=== PATIENT | male | born 1955 | race Caucasian/White ===

== ENCOUNTER 2024-02-13 09:50 | Emergency (ER) | payer MEDICARE, SELFPAY ==
[2024-02-13 09:51] VITALS: BP 210/93; BP 211/100; PULSE 83; PULSE 93; RESP 14; RESP 18; TEMP 36.6; O2SAT 97; BMI 25.4
--- NOTE | 2024-02-13 10:31 | ED.RN ---
NO OLD EKGS
[2024-02-13 10:48] LABS: Absolute Lymphocyte Count 1.71 X10^3/uL (0.83-4.51); Absolute Neutrophil Count 4.4 X10^3/uL (2.0-7.7); Basophil# 0.03 X10^3/uL; Basophil% 0.4 % (0-1); Eosinophil# 0.19 X10^3/uL; Eosinophils% 2.8 % (0-5); Hematocrit 49.7 % (40-54); Hemoglobin 14.9 g/dL (13.0-16.5); Lymphocyte # 1.71 X10^3/ul (0.83-4.51); Lymphocyte % 24.8 % (19-41); Mean Corpuscular Hgb 21.8 pg (27.0-32.0); Mean Corpuscular Volume 72.7 fL (80-94); Mean Platelet Vol. 10.1 fl (6.2-12.0); Monocyte# 0.54 X10^3/uL; Monocyte% 7.8 % (0-10); NRBC Flagged by Analyzer 0 % (0-5); Neutrophil # 4.41 X10^3/uL (2.7-7.7); Neutrophil % 63.9 % (47-70); Platelet Count 202 K/mm3 (150-450); RBC Distribution Width CV 17.2 % (11.6-14.6); RBC Distribution Width SD 38.6 fl (35.1-43.9); Red Blood Count 6.84 M/mm3 (4.6-6.2); White Blood Count 6.9 K/mm3 (4.4-11.0)
--- NOTE | 2024-02-13 10:58 | RAD_ITS ---
STUDY: X-RAY CHEST REASON FOR EXAM: Male, 68 years old. Chest pain. TECHNIQUE: Frontal and lateral views of the chest. COMPARISON: None. FINDINGS: Marked hyperinflation with hyperlucency and flattening of the hemidiaphragms. Findings compatible with mild COPD. Healed granulomatous calcifications.. There is no demonstrated pleural abnormality. Borderline cardiomegaly. Normal mediastinum and nilo. Normal visualized pulmonary arteries. Aortic tortuosity with calcification. Thoracic osteopenia with diffuse mild thoracic spondylosis. Right shoulder arthroplasty. No abnormality of the visualized soft tissue structures of the upper abdomen. RAD/Chest PA and Lateral IMPRESSION: Borderline cardiomegaly with hyperinflation. No active or acute cardiopulmonary disease. Electronically Signed: Chuy Crowell MD at 11:22 EDT ,
[2024-02-13 11:03] LABS: D-Dimer Quantitative (DVT/PE) 0.27 FEU/ug/m (0.27-0.49)
[2024-02-13 11:14] LABS: BNP,B-Type NATRIURETIC PEPTIDE 33.8 pg/mL (0-100)
[2024-02-13 11:15] LABS: Mucous, Urine 0 SEEN /hpf (<or=2+)
[2024-02-13 11:17] LABS: Color, Urine Yellow (Yellow); Glucose, Dipstick 1000 mg/dl (Normal); Ketone-Dipstick 15 mg/dl (Negative); Leukocyte Esterase-Dipstick 100 /ul (Negative); Nitrite-Dipstick Positive (Negative); Occult Blood-Urine 10 /ul (Negative); Protein-Dipstick 30 mg/dl (Negative); Urine Bilirubin Dipstick Negative (Negative); Urine Clarity Sl. Cloudy (Clear); Urine Urobilinogen Normal (Normal); Urine pH 6.5 (5.0 - 8.0)
[2024-02-13 11:21] LABS: AST(SGOT) 21 U/L (15-37); Alanine Aminotransfer ALT/SGPT 27 U/L (16-61); Albumin, Serum 4.1 g/dL (3.2-5.0); Alkaline Phosphatase 81 U/L (45-117); Anion Gap 6 (5-15); BUN 12 mg/dL (7-18); BUN/Creat Ratio 13.6 RATIO (10-20); Bilirubin, Direct 0.26 mg/dL (0.00-0.30); Calcium,Total 9.3 mg/dL (8.5-10.1); Chloride 107 mmol/L (98-107); Creatinine, Serum 0.88 mg/dL (0.70-1.30); EST Glomerular Filtration Rate 91 mL/min (>60); Est Glom Filt Rate - Afr Amer 110 mL/min (>60); Estimated Creatinine Clearance 88.18 ml/min; Globulin 3.4 g/dL (2.2-4.2); Glucose 141 mg/dL (74-106); Lipase 27 U/L (13-75); Potassium 4.1 mmol/L (3.5-5.1); Protein, Total 7.5 g/dL (6.4-8.2); Sodium Level 142 mmol/L (136-145); Troponin-I HS (w/2H Reflex) 19 pg/mL (3.0-78.0)
--- NOTE | 2024-02-13 11:21 | EX.ED.DYSGE1 ---
HPI History of Present Illness Chief Complaint: Back Narrative Narrative: Patient is a 68-year-old male past medical history of hypertension, who presented to the emerged part with chief concern of I think I have a internal shingles. According to the patient he states that this been going on for 3 months now and has been seen by multiple providers and has multiple test performed as to why he is having this left-sided back pain behind his shoulder blade prompting him to come back to the emergency department for the valuation management. Patient states that he did have a bunch of tests looking out of his heart and states that he had a stress test performed for which she has a scheduled heart catheterization in the outpatient setting coming up in the near future. Patient states that he called multiple of his friends and family members and noted that one of the nurses that he knows looked up on [employer] that there is a thing of internal shingles and feels that he has this. [facility] Medical History (Updated 02/13/24 @ 15:[address] Jackson Ledesma DO) Hypertension Home Medications ?Medication ?Instructions ?Recorded ?Last Taken ?Type NK 08/21/17 Unknown History Allergy/AdvReac Type Severity Reaction Status Date / Time No Known Allergies Allergy Verified 02/13/24 09:51 Family History Mother Rheumatoid arthritis Surgical History S/P right knee surgery Social History Smoking Status: Current every day smoker tobacco type: cigarettes ROS ROS ED ROS Narrative Constitutional: Denies headaches, fevers, chills, lightness, dizziness Eyes: Denies changes in vision double vision blurry vision Cardiovascular: States that he does have some chest discomfort but notes that this been going on for significant mount time starting in his back radiating to the front of his chest denies palpitations Respiratory: Denies coughing wheezing shortness of breath Abdomen: Denies abdominal pain nausea vomiting diarrhea : Denies any painful urination, hematuria, polyuria Neurological: Denies any numbness, weakness, tingling Musculoskeletal: Complains of back pain as noted above Skin: Denies any rashes or lesions EXAM Physical Exam Narrative Exam Narrative: General: Patient was assessed sitting at bedside resting comfortably did not appear to be in acute distress Head: Atraumatic, normocephalic Eyes: PERRL bilaterally, EOMI bilaterally, no conjunctival injection noted Neck: Soft, supple, trachea midline Cardiovascular: Regular rate and rhythm no murmurs gallops rubs noted Respiratory: Clear to auscultation bilaterally no rales rhonchi wheeze noted Abdomen: Soft, nondistended, no tenderness to palpation, bowel sounds present x 4 Musculoskeletal: Patient has minimal left CVA tenderness noted on exam Extremities: +5/5 strength noted in the bilateral upper and lower extremities, no pedal edema on exam Neurological: Patient was following commands knew that he was at [facility] years 2023 Skin: Warm, dry, intact no rashes or lesions noted Const Vital Signs: 02/13/24 09:51 02/13/24 09:51 02/13/24 11:00 Temperature 97.9 F Temperature Source Temporal Pulse Rate 93 83 Respiratory Rate 18 14 Blood Pressure 210/93 H 211/100 H Blood Pressure Mean 132 137 Pulse Ox 97 97 Oxygen Delivery Method Room Air Room Air Room Air 02/13/24 11:58 02/13/24 13:51 Temperature Temperature Source Pulse Rate 78 78 Respiratory Rate 16 Blood Pressure 163/76 H 163/76 H Blood Pressure Mean 105 Pulse Ox 99 Oxygen Delivery Method Room Air MDM MDM MDM Narrative Medical decision making narrative: Patient is a 68-year-old male who presented to the emerged part with a chief complaint of left-sided back pain. Patient will avoid performed here on the differential diagnose includes but not limited to kidney stone, UTI, pyelonephritis, ACS, hypertensive emergency. Once workup is obtained reviewed he will be reevaluated. Patient's CBC reviewed showed no evidence of leukocytosis white blood count normal at 6.9, hemoglobin is 14.9, platelet count normal at 202. Patient D-dimer normal at 0.27. Patient sodium normal at 142, potassium normal at 4.1, creatinine normal at 0.88. Patient's AST and ALT were 21 and 27 respectively. Patient's troponin normal at 19 with a delta troponin obtained at 17. Patient is EKG reviewed showed sinus rhythm with a rate of 90 beats per minutes. Patient's TSH normal at 1.33, urinalysis showed positive nitrites 100 leukocyte esterase 25-50 white cells with rare bacteria noted he is not having urinary symptoms this will be sent for culture. Patient's chest x-ray reviewed showed no active or acute cardiopulmonary disease borderline cardiomegaly with hyperinflation. Patient's CT abdomen pelvis with IV contrast showed penetration of the liver multiple calcified lymph nodes in the region of the loren hepatis and Uvaldo pancreatic region focal calcifications also seen in the pancreatic head. Reevaluation the patient patient states that the nitroglycerin did not significantly improve his pain he states that he still has the constant burning sensation in his back. Did discuss the results with the patient and he states that he will not stay in the hospital. He was offered admission for observation and potentially having cardiology perform the heart catheterization that he is supposed to have on the of this month. The patient is adamantly refusing admission and states that he wants to go home and will return with worsening symptoms or other concerns. This pain has been constant now for several weeks to months their for feel less likely that this is cardiac in nature. Patient was noted to keep a close eye on his blood pressure he states that he did not take his antihypertensive prior to arrival today. Patient was encouraged to follow-up with his primary care physician 2 to 3 days and at his cardiology appointment for his heart cath. All question concerns answered discharged home in stable condition. Lab Data Labs: Laboratory Results - last 24 hr 02/13/24 02/13/24 02/13/24 10:40 11:08 12:50 WBC 6.9 RBC 6.84 H Hgb 14.9 Hct 49.7 MCV 72.7 L MCH 21.8 L MCHC 30.0 L RDW Std Deviation 38.6 RDW Coeff of Samuel 17.2 H Plt Count 202 MPV 10.1 Immature Gran % (Auto) 0.300 Neut % (Auto) 63.9 Lymph % (Auto) 24.8 Storey % (Auto) 7.8 Eos % (Auto) 2.8 Baso % (Auto) 0.4 Absolute Neuts (auto) 4.4 Absolute Lymphs (auto) 1.71 Nucleated RBC % 0 D-Dimer Quant (PE/DVT) 0.27 Sodium 142 Potassium 4.1 Chloride 107 Carbon Dioxide 29.0 Anion Gap 6 BUN 12 Creatinine 0.88 Estim Creat Clear Calc 88.18 Est GFR (MDRD) Af Amer 110 Est GFR (MDRD) Non-Af 91 BUN/Creatinine Ratio 13.6 Glucose 141 H Calcium 9.3 Total Bilirubin 1.00 Direct Bilirubin 0.26 AST 21 ALT 27 Alkaline Phosphatase 81 Troponin I High Sens 19 17 B-Natriuretic Peptide 33.8 Total Protein 7.5 Albumin 4.1 Globulin 3.4 Lipase 27 TSH 1.330 Urine Color Yellow Urine Clarity Sl. Cloudy Urine pH 6.5 Ur Specific [place] 1.010 Urine Protein 30 H Urine Glucose (UA) 1000 H Urine Ketones 15 H Urine Occult Blood 10 H Urine Nitrite Positive H Urine Bilirubin Negative Urine Urobilinogen Normal Ur Leukocyte Esterase 100 H Urine RBC 0-5 SEEN Urine WBC 25-50 SEEN Ur Squamous Epith Cells 0-5 SEEN Urine Bacteria RARE Urine Mucus 0 SEEN Radiography Diagnostic Testing: Clinical Impression(s) from Imaging Studies Chest X-Ray 02/13/24 10:58 IMPRESSION: Borderline cardiomegaly with hyperinflation. No active or acute cardiopulmonary disease. Electronically Signed: Chuy Crowell MD at 11:22 EDT , Abdomen/Pelvis CT 02/13/24 11:26 IMPRESSION: Penetration of the liver. Multiple calcified lymph nodes in the region of the loren hepatis and peripancreatic region. Focal calcifications also seen in the pancreatic head. Electronically Signed: Nathaniel Taylor MD at 12:27 EDT , Discharge Plan Triage Chief Complaint: Back ED Provider: Jackson Ledesma Dx/Rx/DC Orders Clinical Impression: Back pain, Chest pain Prescriptions: No Action NK Primary Care Provider: Michaelle Dsouza Referrals: Michaelle Dsouza, [Primary Care Provider] - Activity Restrictions/Additional Instructions: Follow-up with your electrolysist for your heart cath. Follow-up your primary care physician outpatient setting. Keep a close eye on your blood pressure. Take your blood pressure medication when you get home as you did not take it yet today. Return with worsening symptoms or any other concerns. Print Language: [place] Disposition Disposition: Home, Self Care
[2024-02-13 11:24] LABS: Bacteria RARE /hpf (None Seen); Red Blood Cells-Urine 0-5 SEEN /hpf (0-5); Squamous Epithelial Cells - UA 0-5 SEEN /hpf (0-5); White Blood Cells 25-50 SEEN /hpf (0-5)
--- NOTE | 2024-02-13 11:26 | CT_ITS ---
STUDY: CT ABDOMEN AND PELVIS WITH CONTRAST REASON FOR EXAM: Male, 68 years old. Left flank pain RADIATION DOSAGE (If Supplied By Facility): CTDIvol = ( 16.34 ) mGy, DLP = ( 962.61 ) mGycm TECHNIQUE: Transaxial images were obtained from the dome of the diaphragm to the symphysis pubis without oral contrast. IV 100mL Isovue-300 was administered. Sagittal and coronal images were reconstructed. Individualized dose optimization techniques were used for this CT. COMPARISON: None. FINDINGS: Mild linear scarring at the lung bases. The visualized portions of the heart are within normal limits. There is decreased attenuation of the liver consistent with steatosis. Normal gallbladder and extrahepatic biliary system. Normal spleen. There are pancreatic calcifications in the distribution of the ducts consistent with chronic pancreatitis. Multiple calcifications are seen in the vascular structures in the region of the loren hepatis. Normal bilateral adrenal glands. Normal right kidney. Normal left kidney. Normal visualized stomach. Normal small intestine. There are multiple colonic diverticula consistent with diverticulosis. The appendix is visualized and appears normal. There is diffuse atherosclerotic calcification of the abdominal aorta, without a demonstrated aneurysm. Normal inferior vena cava. Normal retroperitoneum. Normal urinary bladder. Prosthetic enlargement with indentation of the bladder base. There is a right-sided inguinal hernia containing adipose tissue. There are degenerative changes of the visualized lumbar spine. CT/Abdomen/Pelvis W IV Cont ONLY IMPRESSION: Penetration of the liver. Multiple calcified lymph nodes in the region of the loren hepatis and peripancreatic region. Focal calcifications also seen in the pancreatic head. Electronically Signed: Nathaniel Taylor MD at 12:27 EDT ,
[2024-02-13 11:58] VITALS: BP 163/76; PULSE 78
[2024-02-13] MEDS: Nitroglycerin SL (ED/IMG/CATH) 0.4 MG TABLET SL (11:58)
[2024-02-13 12:44] LABS: Reflex Troponin-HS? (from REC) Y
[2024-02-13 13:19] LABS: Troponin-I HS 17 pg/mL (3.0-78.0)
[2024-02-13 13:51] VITALS: BP 163/76; PULSE 78; RESP 16; O2SAT 99
[2024-02-13 16:02] VITALS: BP 173/115; PULSE 78; RESP 16; TEMP 36.4; O2SAT 98
== END 2024-02-13 16:06 | disposition home or self-care (01) ==
PROVIDERS: Emergency Provider Emergency Medicine; PCP Internal Medicine; Visit Provider Emergency Medicine
DX: R07.9 Chest pain, unspecified (principal); F17.210 Nicotine dependence, cigarettes, uncomplicated; M54.9 Dorsalgia, unspecified; K86.89 Other specified diseases of pancreas; I10 Essential (primary) hypertension; R10.9 Unspecified abdominal pain
CPT/HCPCS: 71046; 74177; 80048; 80076; 81001; 83690; 83880; 84443; 84484; 85025; 85379; 93005; 99285; Q9967; A4216

== ENCOUNTER → 2024-08-05 | Outpatient (CLI) | payer MEDICARE, MEDICAID, SELFPAY ==
[2024-08-05 15:27] LABS: Hematocrit 52.1 % (40-54); Hemoglobin 15.6 g/dL (13.0-16.5); Mean Corp Hgb Conc 29.9 g/dL (32-36); Mean Corpuscular Hgb 21.8 pg (27.0-32.0); Mean Corpuscular Volume 72.8 fL (80-94); Mean Platelet Vol. 10.3 fl (6.2-12.0); Platelet Count 297 K/mm3 (150-450); RBC Distribution Width CV 17.7 % (11.6-14.6); RBC Distribution Width SD 39.8 fl (35.1-43.9); Red Blood Count 7.16 M/mm3 (4.6-6.2); White Blood Count 10.3 K/mm3 (4.4-11.0)
[2024-08-05 15:35] LABS: Vitamin B12 366 pg/mL (211-911)
[2024-08-05 16:02] LABS: ALB/GLOB Ratio 1.2 RATIO (0.9-2.4); AST(SGOT) 18 U/L (15-37); Alanine Aminotransfer ALT/SGPT 27 U/L (16-61); Albumin, Serum 4.5 g/dL (3.2-5.0); Alkaline Phosphatase 88 U/L (45-117); Anion Gap 8 (5-15); BUN 16 mg/dL (7-18); BUN/Creat Ratio 15.2 RATIO (10-20); Calcium,Total 9.9 mg/dL (8.5-10.1); Chloride 106 mmol/L (98-107); Creatinine, Serum 1.05 mg/dL (0.70-1.30); EST Glomerular Filtration Rate 74 mL/min (>60); Est Glom Filt Rate - Afr Amer 90 mL/min (>60); Globulin 3.7 g/dL (2.2-4.2); Glucose 158 mg/dL (74-106); Potassium 4.5 mmol/L (3.5-5.1); Protein, Total 8.2 g/dL (6.4-8.2); Sodium Level 142 mmol/L (136-145)
[2024-08-13 08:09] LABS: Free Kappa Light Chains 18.7 mg/L (3.3-19.4); Free Lambda Light Chains 18.1 mg/L (5.7-26.3); Vitamin B1, Thiamine 114.9 nmol/L (66.5-200.0)
== END | disposition home or self-care (01) ==
LOC: MTLAB 12:41
PROVIDERS: PCP Internal Medicine; Referring Provider Psychiatry & Neurology Neurology; Visit Provider Psychiatry & Neurology Neurology
DX: G62.9 Polyneuropathy, unspecified (principal); I10 Essential (primary) hypertension
CPT/HCPCS: 36415; 80053; 82607; 82746; 83883; 84425; 84443; 85027

== ENCOUNTER → 2024-09-07 | Outpatient (CLI) | payer MEDICARE, MEDICAID, SELFPAY ==
--- NOTE | 2024-09-07 12:56 | ART_ITS ---
Reason For Study Reason For Study: Absent Pedal Pulses Procedure A bilateral lower extremity continuous wave Doppler with analog waveform analysis and ankle brachial indexes. Left Segmental Pressures Left brachial= 138mmHg. Left posterior tibial artery = 173mmHg. Left dorsalis pedis artery = 169mmHg. Left digit = 98 mmHg. Right Segmental Pressures Right brachial= 137mmHg. Right posterior tibial artery = 161mmHg. Right dorsalis pedis artery = 140mmHg. Right digit = 110 mmHg. Indices The right ankle brachial index by the posterior tibial artery is 1.17. The right ankle brachial index by the dorsalis pedis is 1.01. The right digital-brachial index is 0.80. The left ankle brachial index by the posterior tibial artery is 1.25. The left ankle brachial index by the dorsalis pedis is 1.22. The left digital-brachial index is 0.71. VL/Ankle Brachial Index Interpretation Summary Triphasic Doppler waveforms are noted at ankle level bilaterally. Pulse-volume recordings appear satisfactory at ankle and digital levels bilaterally. Resting ankle-brachial indices are normal bilat erally. Digital-brachial indices are normal bilaterally. There is no evidence of significant arterial occlusive disease in the lower ext remities bilaterally. Ordering Physician: Chad Hough Referring Physician: Rene Lopez Performed By: Leilani Farris RDCS/RVT
== END | disposition home or self-care (01) ==
LOC: CVS 12:56
PROVIDERS: Referring Provider Psychiatry & Neurology Neurology; Visit Provider Psychiatry & Neurology Neurology
DX: R09.89 Other specified symptoms and signs involving the circulatory and respiratory systems (principal)
CPT/HCPCS: 93922

== ENCOUNTER → 2025-03-08 | Outpatient (CLI) | payer MEDICARE, MEDICAID, SELFPAY ==
[2025-03-08 12:08] LABS: Hematocrit 47.4 % (40-54); Hemoglobin 14.6 g/dL (13.0-16.5); Mean Corp Hgb Conc 30.8 g/dL (32-36); Mean Corpuscular Volume 73.1 fL (80-94); Mean Platelet Vol. 10.3 fl (6.2-12.0); Platelet Count 237 K/mm3 (150-450); RBC Distribution Width CV 17.6 % (11.6-14.6); RBC Distribution Width SD 42.3 fl (35.1-43.9); Red Blood Count 6.48 M/mm3 (4.6-6.2); White Blood Count 7.6 K/mm3 (4.4-11.0)
[2025-03-08 13:19] LABS: Uric Acid 5.4 mg/dL (3.5-7.2)
== END | disposition home or self-care (01) ==
LOC: MTLAB 09:23
PROVIDERS: Referring Provider Psychiatry & Neurology Neurology; Visit Provider Psychiatry & Neurology Neurology
DX: L03.90 Cellulitis, unspecified (principal); B02.29 Other postherpetic nervous system involvement
CPT/HCPCS: 36415; 84550; 85027; 85652